=== PATIENT | female | born 1990 | race Caucasian/White ===

== ENCOUNTER 2020-12-20 18:29 | Emergency (ER) | payer MEDICAID ==
[~2020-12-20] VITALS: Ht 170.2 cm; Wt 57.5 kg
[2020-12-20] MEDS ORDERED: risperiDONE 2mg tablet PO ONE (19:30)
[2020-12-20 19:55] LABS: BASOPHILS % (AUTO) 0.7 % (0-1); EOSINOPHILS % (AUTO) 0.3 % (0-6); HEMATOCRIT 37.3 % (35.0-45.0); HEMOGLOBIN 12.4 g/dl (12.0-16.0); LYMPHOCYTES # (AUTO) 1.7 X10'3 (1.1-4.8); LYMPHOCYTES % (AUTO) 26.8 % (21-51); MEAN CORPUSCULAR HEMOGLOBIN 29.8 PG (27.0-31.0); MEAN CORPUSCULAR HGB CONC 33.3 g/dL (33.0-36.5); MEAN CORPUSCULAR VOLUME 89.3 FL (78-98); MEAN PLATELET VOLUME 7.8 FL (7.4-10.4); MONOCYTES # (AUTO) 0.6 X10'3 (0-0.9); MONOCYTES % (AUTO) 9.1 % (2-12); NEUTROPHILS % (AUTO) 63.1 % (42-75); PLATELET COUNT 237 X10'3 (140-440); RED BLOOD COUNT 4.18 X10'6 (4.20-5.60); RED CELL DISTRIBUTION WIDTH 15.2 % (11.5-14.5); WHITE BLOOD COUNT 6.3 X10'3 (4.5-11.0)
[2020-12-20 20:08] LABS: ALANINE AMINOTRANSFERASE 15 U/L (12-78); ALBUMIN 4.6 G/DL (3.4-5.0); ALBUMIN/GLOBULIN RATIO 1.1 (1.1-1.5); ALKALINE PHOSPHATASE 59 IU/L (46-116); ANION GAP 11 (8-16); ASPARTATE AMINO TRANSFERASE 13 U/L (10-37); BLOOD UREA NITROGEN 9 MG/DL (7-18); BUN/CREATININE RATIO 10.3 (6.6-38.0); CALCIUM 9.5 MG/DL (8.5-10.1); CHLORIDE 103 MMOL/L (99-107); CREATININE 0.87 MG/DL (0.40-0.90); GLUCOSE 99 MG/DL (70-104); POTASSIUM 3.8 MMOL/L (3.5-5.1); SODIUM 139 MMOL/L (135-145); TOTAL CARBON DIOXIDE 24.7 MMOL/L (24-32); TOTAL PROTEIN 8.7 G/DL (6.4-8.2); eGFR 78 ML/MIN
[2020-12-20 20:17] LABS: ETHANOL < 0.010 GM/DL (0.0-0.010)
--- NOTE | 2020-12-20 21:06 | NUR ---
To one with the patient to complete intake. The patient is quiet, sad and withdrawn. The patient gives minimal eye contact and her verbal replies are so soft they are difficult to understand at times. The patient stated she was brought in by [employer] after she called saying that she was suicidal with a plan to step in front of a car. She stated she has had previous psychiatric admissions and has been diagnoised with Schizophrenia. The patient is very distracted by internal stimuli and constantly softly mumbling to herself. She stated "Sometimes I see demons and hear angels" She also stated that "The Lord actually helped me call the police" She has been very cooperative.
[2020-12-20 21:14] LABS: CLARITY,URINE CLEAR (Clear); COLOR,URINE YELLOW (Yellow); GLUCOSE, URINE NEGATIVE (Neg); KETONES,URINE >=80 mg/dl (Neg); LEUKOCYTE ESTERASE ,URINE NEGATIVE (Neg); NITRITES, URINE NEGATIVE (Neg); OCCULT BLOOD,URINE SMALL (Neg); PH,URINE 5.5 (4.8-8.0); PROTEIN,URINE NEGATIVE (Neg); UROBILINOGEN,URINE 0.2 E.U/dL (0.2-1.0)
[2020-12-20 21:16] LABS: UA COLLECTION TYPE CLN CATCH MIDSTREAM; URINE HCG NEGATIVE (NEG)
[2020-12-20 21:25] LABS: BACTERIA,URINE 2+ /HPF (Neg); RBC,URINE 0-2 /HPF (0-2); SQUAMOUS EPITHELIAL CELL,UR MANY /LPF (FEW)
[2020-12-20 21:44] LABS: URINE AMPHETAMINE SCREEN NEGATIVE (Neg); URINE BARBITUATE SCREEN NEGATIVE (Neg); URINE BENZODIAZEPINES SCREEN NEGATIVE (Neg); URINE CANNABINOID SCREEN NEGATIVE (Neg); URINE COCAINE SCREEN NEGATIVE (Neg); URINE METHADONE SCREEN NEGATIVE (Neg); URINE OPIATE SCREEN NEGATIVE (Neg); URINE PHENCYCLIDINE SCREEN NEGATIVE (Neg)
--- NOTE | 2020-12-20 21:45 | NUR ---
The patient appears to be sleeping
--- NOTE | 2020-12-20 21:54 | NUR ---
Packet sent to [facility]
--- NOTE | 2020-12-20 22:56 | NUR ---
The patient appears to be sleeping
--- NOTE | 2020-12-21 01:24 | NUR ---
The patient appears to be sleeping
--- NOTE | 2020-12-21 02:19 | NUR ---
The patient appears to be sleeping
--- NOTE | 2020-12-21 03:32 | NUR ---
The patient appears to be sleeping
--- NOTE | 2020-12-21 03:49 | NUR ---
Pt resting in bed, on right side, even and unlabored respirations, no signs of distress at this time. Will continue to monitor.
--- NOTE | 2020-12-21 05:04 | NUR ---
Pt resting in bed, still on right wide, RR 16 even and unlabored. Pt has no signs of distress. Will continue to reassess.
--- NOTE | 2020-12-21 06:21 | NUR ---
rcvd report from ENRIQUE Pablo, pt is sleeping on her left side, eyes closed, regular breathing observed, no needs at this time
--- NOTE | 2020-12-21 07:33 | NUR ---
pt is moving around in bed, eyes closed, regular breathing present, has ambulated to the bathroom
--- NOTE | 2020-12-21 08:26 | NUR ---
spoke to pt, she is very quiet, often leaves the conversation to talk to "Abdoul" then re enters conversation and explains who she is talking to, states she came here from [place], she just wanted a new place, says she is staying in an arbnb, I asked her code for her bike outside which she gave, states she does have thoughts of harming herself with no specific plan
[2020-12-21] MEDS ORDERED: NO HOME MEDS (08:57)
--- NOTE | 2020-12-21 09:27 | NUR ---
Diogenes ACKERMAN, evaluating patient.
--- NOTE | 2020-12-21 09:31 | NUR ---
scmh at bedside eval pt
--- NOTE | 2020-12-21 10:30 | NUR ---
pt is standing at bedside, talking to the wall, calm
[2020-12-21] MEDS ORDERED: OLANZapine 5mg rapidly disint. tablet PO ONE ×2 (10:45→19:50)
--- NOTE | 2020-12-21 10:50 | NUR ---
order obtained for zyprexa, pt accepting of medication, continues to talk to the wall
--- NOTE | 2020-12-21 10:53 | NUR ---
PT STILL RESPONDING TO EXTERNAL STIMULI, TALKING TO THE CORNER, I ASKED HER IS SHE IS STILL HAVING THOUGHTS OF HARMING HERSELF, SHE STATE THAT SHE IS, AND THAT SHE DOESN'T HAVE A DIRECT PLAN, BUT STILL WANTS TO HARM HERSELF, DUE TO THINGS THAT SHE IS UNABLE TO VERBALIZE, BUT LOTS OF "STUFF"
--- NOTE | 2020-12-21 11:33 | NUR ---
spoke to Dr Rucker re: pt dc, she said to have Diogenes, [facility] , come and talk to her, Diogenes is at lunch, let Aiden know, she said she will tell him when he gets back
--- NOTE | 2020-12-21 11:36 | NUR ---
pt is sitting on her bed, eating, talking to herself
--- NOTE | 2020-12-21 12:30 | NUR ---
pt is up to the bathroom, calm
--- NOTE | 2020-12-21 13:35 | NUR ---
PT IS STANDING AT THE END OF HER BED, TALKING TO SOMEONE THAT ISN'T THERE
--- NOTE | 2020-12-21 13:51 | NUR ---
Diogenes with [facility], states that the hold will continue until another worker from [facility] comes and evals pt to ensure safe discharge
--- NOTE | 2020-12-21 15:33 | NUR ---
pt is laying on her right side, eyes closed, regular breathing observed, no needs at this time
--- NOTE | 2020-12-21 16:57 | NUR ---
pt is laying on her left side, eyes closed, asleep, no needs at this time
--- NOTE | 2020-12-21 19:31 | NUR ---
The patient is constantly talking and whispering to herself. She stated that the lord healed her during the night. She reports that she is hearing and seeing angels. She is unable to verbalize a plan for food intermediate or clothing. [facility] contacted and asked what the plan is and there inital plan was to release her. ER staff have requested additional evaluation.
--- NOTE | 2020-12-21 21:00 | NUR ---
THe patient appears to be sleeping at this time. She does not feel she needs medications but did take the zyprexa zydis.
--- NOTE | 2020-12-21 22:54 | NUR ---
The patient was up to use the bathroom. She continues to mumble constantly to herself.
--- NOTE | 2020-12-22 01:39 | NUR ---
The patient appears to be sleeping well
--- NOTE | 2020-12-22 03:16 | NUR ---
The patient up to the bedside commode with two assist.
--- NOTE | 2020-12-22 04:42 | NUR ---
The patient appears to have slept well during the night.
[2020-12-22 06:14] VITALS: BP 131/73
--- NOTE | 2020-12-22 06:38 | NUR ---
rcvd report from ENRIQUE Campbell, pt was just up to the bathroom, no longer on a hold, awaiting [facility]
--- NOTE | 2020-12-22 07:41 | NUR ---
pt is laying on her right side, regular breathing observed, sleeping
--- NOTE | 2020-12-22 08:32 | NUR ---
spoke to pt she states that she is not suicidal today and that she is not hearing voices, i asked if her angels were here and she stated that yes they are here, she has been quietly talking to them
--- NOTE | 2020-12-22 09:15 | NUR ---
pt speaking with JAVI Bacon, [place], obtained phone from her belongings, for Aiden, so pt can get a phone number out of it
--- NOTE | 2020-12-22 09:41 | NUR ---
pt was just talking quietly with pt in the bed next door, she is still responding to external stimuli at times, calm
--- NOTE | 2020-12-22 10:28 | NUR ---
pt is still with MEKA Wolfe, attempting to contact family/friends
--- NOTE | 2020-12-22 11:30 | NUR ---
pt sitting on neighbor's bed coloring, calm, no needs
--- NOTE | 2020-12-22 12:11 | NUR ---
spoke to Dr Raymundo, pt is to be discharged to be taken by cab to [facility] access Services, to set up mental health care. he will be doing discharge
--- NOTE | 2020-12-22 12:29 | NUR ---
called [employer], [facility] wait
== END 2020-12-22 13:55 | disposition home or self-care (01) ==
LOC: ER 18:30
DX: F29 Unspecified psychosis not due to a substance or known physiological condition (principal); Z20.822 Contact with and (suspected) exposure to COVID-19; R45.851 Suicidal ideations; R94.6 Abnormal results of thyroid function studies
CPT/HCPCS: 36415; 80053; 80305; 80320; 81001; 81025; 84443; 85025; 87426; 99285

== ENCOUNTER 2021-03-09 11:09 | Emergency (ER) | payer MEDICAID ==
[~2021-03-09] VITALS: Ht 170.2 cm; Wt 73.3 kg
[~2021-03-09 11:09] MED LIST: NO HOME MEDS
[2021-03-09] MEDS ORDERED: LIDOcaine 1% 30ml preserv. free vial IJ ONE (11:20)
[2021-03-09] MEDS ORDERED: bacitracin 15gm ointment TP ONE (11:20)
[2021-03-09] MEDS ORDERED: acetaminophen 325mg tablet PO ONE (11:30)
[2021-03-09] MEDS ORDERED: CEPH-585 PO (11:54)
[2021-03-09 12:15] VITALS: BP 122/81
== END 2021-03-09 12:16 | disposition home or self-care (01) ==
LOC: ER 11:10
DX: S61.411A Laceration without foreign body of right hand, initial encounter (principal); Z79.899 Other long term (current) drug therapy; W26.8XXA Contact with other sharp object(s), not elsewhere classified, initial encounter; Y93.89 Activity, other specified; Y92.89 Other specified places as the place of occurrence of the external cause; Y99.8 Other external cause status
CPT/HCPCS: 12002; 99283

== ENCOUNTER 2022-01-28 09:33 | Emergency (ER) | payer MEDICAID ==
[~2022-01-28] VITALS: Ht 170.2 cm; Wt 79.1 kg
[2022-01-28 09:38] VITALS: BP 111/73
[2022-01-28 10:29] LABS: CLARITY,URINE TURBID (Clear); COLOR,URINE RED (Yellow); GLUCOSE, URINE NEGATIVE (Neg); KETONES,URINE TRACE mg/dl (Neg); LEUKOCYTE ESTERASE ,URINE NEGATIVE (Neg); NITRITES, URINE NEGATIVE (Neg); OCCULT BLOOD,URINE LARGE (Neg); PROTEIN,URINE 100 mg/dl (Neg); UROBILINOGEN,URINE 0.2 E.U/dL (0.2-1.0)
[2022-01-28 10:30] LABS: UA COLLECTION TYPE CLN CATCH MIDSTREAM
[2022-01-28 10:34] LABS: MUCUS STRANDS FEW /LPF (Neg); RBC,URINE TNTC /HPF (0-2); SQUAMOUS EPITHELIAL CELL,UR MANY /LPF (FEW); WBC,URINE 0-4 /HPF (0-4)
[2022-01-28 10:35] LABS: BACTERIA,URINE 1+ /HPF (Neg)
[2022-01-28 11:05] LABS: BASOPHILS % (AUTO) 0.5 % (0-1); EOSINOPHILS # (AUTO) 0.1 X10'3 (0-0.9); EOSINOPHILS % (AUTO) 0.9 % (0-6); HEMOGLOBIN 12.3 g/dl (12.0-16.0); LYMPHOCYTES # (AUTO) 1.7 X10'3 (1.1-4.8); LYMPHOCYTES % (AUTO) 27.6 % (21-51); MEAN CORPUSCULAR HEMOGLOBIN 28.8 PG (27.0-31.0); MEAN CORPUSCULAR HGB CONC 33.4 g/dL (33.0-36.5); MEAN CORPUSCULAR VOLUME 86.4 FL (78-98); MEAN PLATELET VOLUME 7.9 FL (7.4-10.4); MONOCYTES # (AUTO) 0.4 X10'3 (0-0.9); MONOCYTES % (AUTO) 6.1 % (2-12); NEUTROPHILS # (AUTO) 4.1 X10'3 (1.8-7.7); NEUTROPHILS % (AUTO) 64.9 % (42-75); PLATELET COUNT 332 X10'3 (140-440); RED BLOOD COUNT 4.28 X10'6 (4.20-5.60); RED CELL DISTRIBUTION WIDTH 15.2 % (11.5-14.5); WHITE BLOOD COUNT 6.2 X10'3 (4.5-11.0)
[2022-01-28 11:20] LABS: ALANINE AMINOTRANSFERASE 16 U/L (12-78); ALBUMIN 4.3 G/DL (3.4-5.0); ALBUMIN/GLOBULIN RATIO 1.1 (1.1-1.5); ALKALINE PHOSPHATASE 95 IU/L (46-116); ANION GAP 6 (8-16); ASPARTATE AMINO TRANSFERASE 16 U/L (10-37); BILIRUBIN,TOTAL 1.5 MG/DL (0.1-1.0); BLOOD UREA NITROGEN 9 MG/DL (7-18); CHLORIDE 104 MMOL/L (99-107); CREATININE 0.82 MG/DL (0.40-0.90); ETHANOL < 0.010 GM/DL (0.0-0.010); GLUCOSE 106 MG/DL (70-104); POTASSIUM 3.9 MMOL/L (3.5-5.1); SODIUM 137 MMOL/L (135-145); TOTAL CARBON DIOXIDE 26.9 MMOL/L (24-32); TOTAL PROTEIN 8.1 G/DL (6.4-8.2); eGFR > 90 ML/MIN
[2022-01-28 12:00] LABS: URINE AMPHETAMINE SCREEN NEGATIVE (Neg); URINE BARBITUATE SCREEN NEGATIVE (Neg); URINE BENZODIAZEPINES SCREEN NEGATIVE (Neg); URINE CANNABINOID SCREEN NEGATIVE (Neg); URINE COCAINE SCREEN NEGATIVE (Neg); URINE METHADONE SCREEN NEGATIVE (Neg); URINE OPIATE SCREEN NEGATIVE (Neg); URINE PHENCYCLIDINE SCREEN NEGATIVE (Neg)
[2022-01-28 12:24] LABS: URINE HCG NEGATIVE (NEG)
--- NOTE | 2022-01-28 13:15 | NUR ---
Pt brought over to the unit from the main ER. Pt now waiting to be evaluated by mental health. She is calm, cooperative and polite with staff.
--- NOTE | 2022-01-28 14:46 | NUR ---
Pt evaluated by mental health. She will be discharged and referred to [facility].
== END 2022-01-28 15:10 | disposition home or self-care (01) ==
LOC: ER 09:33
DX: R44.3 Hallucinations, unspecified (principal); Z20.822 Contact with and (suspected) exposure to COVID-19; F41.9 Anxiety disorder, unspecified; R00.0 Tachycardia, unspecified
CPT/HCPCS: 36415; 80053; 80305; 80320; 81001; 81025; 85025; 87635; 99284; C9803

== ENCOUNTER 2022-05-18 14:31 | Emergency (ER) | payer MEDICAID ==
[~2022-05-18] VITALS: Ht 172.7 cm; Wt 72.7 kg
[2022-05-18 16:15] LABS: BASOPHILS # (AUTO) 0.1 X10'3 (0-0.2); BASOPHILS % (AUTO) 0.8 % (0-1); EOSINOPHILS % (AUTO) 0.5 % (0-6); HEMATOCRIT 37.3 % (35.0-45.0); HEMOGLOBIN 12.3 g/dl (12.0-16.0); LYMPHOCYTES # (AUTO) 1.7 X10'3 (1.1-4.8); LYMPHOCYTES % (AUTO) 24.5 % (21-51); MEAN CORPUSCULAR HEMOGLOBIN 28.3 PG (27.0-31.0); MEAN CORPUSCULAR HGB CONC 33.1 g/dL (33.0-36.5); MEAN CORPUSCULAR VOLUME 85.3 FL (78-98); MEAN PLATELET VOLUME 7.3 FL (7.4-10.4); MONOCYTES # (AUTO) 0.6 X10'3 (0-0.9); MONOCYTES % (AUTO) 8.3 % (2-12); NEUTROPHILS # (AUTO) 4.7 X10'3 (1.8-7.7); NEUTROPHILS % (AUTO) 65.9 % (42-75); PLATELET COUNT 359 X10'3 (140-440); RED BLOOD COUNT 4.37 X10'6 (4.20-5.60); RED CELL DISTRIBUTION WIDTH 16.2 % (11.5-14.5); WHITE BLOOD COUNT 7.1 X10'3 (4.5-11.0)
[2022-05-18 16:30] LABS: ALANINE AMINOTRANSFERASE 14 U/L (12-78); ALBUMIN 4.2 G/DL (3.4-5.0); ALBUMIN/GLOBULIN RATIO 1.1 (1.1-1.5); ALKALINE PHOSPHATASE 84 IU/L (46-116); ANION GAP 8 (8-16); ASPARTATE AMINO TRANSFERASE 9 U/L (10-37); BILIRUBIN,TOTAL 1.1 MG/DL (0.1-1.0); BLOOD UREA NITROGEN 5 MG/DL (7-18); CALCIUM 9.4 MG/DL (8.5-10.1); CHLORIDE 101 MMOL/L (99-107); CREATININE 0.83 MG/DL (0.40-0.90); GLUCOSE 106 MG/DL (70-104); POTASSIUM 3.5 MMOL/L (3.5-5.1); SODIUM 137 MMOL/L (135-145); TOTAL CARBON DIOXIDE 27.7 MMOL/L (24-32); eGFR > 90 ML/MIN
--- NOTE | 2022-05-18 20:41 | NUR ---
The patient was moved to bed [facility] after she was brought in by her friend. She reports she has been off her psychiatric medications and is experiencing tactile, auditory hallucinations. She presents as very distracted by internal stimuli and was constantly mumbling to herself. She stated, "I have been feeling burning, burning, burning on my arms" When asked if she was eating at home she reported, "not eating much. drinking, drinking, drinking, food, snacks. I havn't been eating a whole lot" Dr. Carrington at the bedside.
[2022-05-18] MEDS ORDERED: OLANZapine 2.5MG tablet PO ONE (21:00)
--- NOTE | 2022-05-18 21:16 | NUR ---
The patient is talking to herself. She did take zyprexa 10mg po
--- NOTE | 2022-05-18 22:54 | NUR ---
The patient appears to be sleeping
--- NOTE | 2022-05-19 00:28 | NUR ---
PATIENT'S ROOMMATE MELISSA CAIN [phone]
--- NOTE | 2022-05-19 01:09 | NUR ---
The patient appears to be sleeping
--- NOTE | 2022-05-19 02:24 | NUR ---
The patient appears to be sleeping
--- NOTE | 2022-05-19 03:58 | NUR ---
The patient appears to be sleeping
--- NOTE | 2022-05-19 05:53 | NUR ---
The patient appeared to have slept well during the night. She did just give a urine sample and is back in bed at this time
[2022-05-19 05:54] LABS: CLARITY,URINE CLEAR (Clear); COLOR,URINE YELLOW (Yellow); GLUCOSE, URINE NEGATIVE (Neg); KETONES,URINE TRACE mg/dl (Neg); LEUKOCYTE ESTERASE ,URINE NEGATIVE (Neg); NITRITES, URINE NEGATIVE (Neg); OCCULT BLOOD,URINE NEGATIVE (Neg); PROTEIN,URINE NEGATIVE (Neg); UROBILINOGEN,URINE 0.2 E.U/dL (0.2-1.0)
[2022-05-19 05:59] LABS: UA COLLECTION TYPE CLN CATCH MIDSTREAM; URINE AMPHETAMINE SCREEN NEGATIVE (Neg); URINE BARBITUATE SCREEN NEGATIVE (Neg); URINE BENZODIAZEPINES SCREEN NEGATIVE (Neg); URINE CANNABINOID SCREEN NEGATIVE (Neg); URINE COCAINE SCREEN NEGATIVE (Neg); URINE METHADONE SCREEN NEGATIVE (Neg); URINE OPIATE SCREEN NEGATIVE (Neg); URINE PHENCYCLIDINE SCREEN NEGATIVE (Neg)
--- NOTE | 2022-05-19 06:02 | NUR ---
PACKET FAXED TO [facility]
--- NOTE | 2022-05-19 06:55 | NUR ---
Recieved Pt in bed sleeping w/o distress at this time.
--- NOTE | 2022-05-19 09:00 | NUR ---
Pt slept through breakfast and remains sleeping at this time.
--- NOTE | 2022-05-19 11:15 | NUR ---
Pt woke and this RN introduced self. Pt pleasant and smiling and denied any needs and no complaints at this time. Pt resting in bed at this time.
[2022-05-19 12:00] LABS: URINE HCG NEGATIVE (NEG)
--- NOTE | 2022-05-19 13:10 | NUR ---
Pt ate lunch and up to bathroom. Pt has returned to bed.
--- NOTE | 2022-05-19 14:30 | NUR ---
Pt talked to odette henderson on phone. She talked with [facility] clinician and was evaluated for 5150. Millie met with this RN and reported she would be placing Pt on 5150.
--- NOTE | 2022-05-19 16:51 | NUR ---
Nurse to nurse report completed with [facility]. Received call from [facility] office with acceptance for PT. at [facility] @[address]asad. Pt will be picked up at approx. 1930, by [facility] route driver salesperson.
--- NOTE | 2022-05-19 18:01 | NUR ---
Pt in her bed eating dinner, calm and cooperative.
[2022-05-19 18:39] VITALS: BP 112/80
--- NOTE | 2022-05-19 18:43 | NUR ---
Pt is pleasant and smiling. Pt came up to nurses station to tell nurse and tech that "Abdoul loves us very much." Pt stated she did not want to be placed at [facility] because she "has too much stuff to do." RN explained placement process to her and reassured her that it is a good facility. Pt seemed accepting and is aware that she will be getting picked up between [id number].
--- NOTE | 2022-05-19 19:20 | NUR ---
Pt speaking to friend and roommate on phone. Pt is pleasant and in no apparent distress
== END 2022-05-19 20:13 ==
LOC: ER 14:32
DX: R44.2 Other hallucinations (principal); Z20.822 Contact with and (suspected) exposure to COVID-19
CPT/HCPCS: 36415; 80053; 80305; 80320; 81003; 81025; 84443; 85025; 87635; 99285; C9803

== ENCOUNTER 2022-12-27 06:07 | Emergency (ER) | payer MEDICAID ==
[~2022-12-27] VITALS: Ht 170.2 cm; Wt 77.3 kg
[2022-12-27 07:53] LABS: CLARITY,URINE TURBID (Clear); COLOR,URINE YELLOW (Yellow); GLUCOSE, URINE NEGATIVE (Neg); KETONES,URINE NEGATIVE (Neg); LEUKOCYTE ESTERASE ,URINE LARGE (Neg); NITRITES, URINE POSITIVE (Neg); OCCULT BLOOD,URINE NEGATIVE (Neg); PROTEIN,URINE NEGATIVE (Neg); UROBILINOGEN,URINE 0.2 E.U/dL (0.2-1.0)
[2022-12-27 08:01] LABS: UA COLLECTION TYPE CLN CATCH MIDSTREAM
[2022-12-27 08:04] LABS: URINE AMPHETAMINE SCREEN NEGATIVE (Neg); URINE BARBITUATE SCREEN NEGATIVE (Neg); URINE BENZODIAZEPINES SCREEN NEGATIVE (Neg); URINE CANNABINOID SCREEN NEGATIVE (Neg); URINE COCAINE SCREEN NEGATIVE (Neg); URINE METHADONE SCREEN NEGATIVE (Neg); URINE OPIATE SCREEN NEGATIVE (Neg); URINE PHENCYCLIDINE SCREEN NEGATIVE (Neg)
[2022-12-27 08:07] LABS: AMORPHOUS PHOSPHATES 3+; BACTERIA,URINE 2+ /HPF (Neg)
[2022-12-27 08:08] LABS: RBC,URINE 0-2 /HPF (0-2)
[2022-12-27 08:09] LABS: MUCUS STRANDS MODERATE /LPF (Neg); TRANSITIONAL EPI CELLS,URINE MODERATE /HPF
[2022-12-27 08:11] LABS: SQUAMOUS EPITHELIAL CELL,UR MODERATE /LPF (FEW)
[2022-12-27] MEDS ORDERED: OLAN5TAB3 PO (09:00)
[2022-12-27 09:22] VITALS: BP 120/66
== END 2022-12-27 09:25 | disposition home or self-care (01) ==
LOC: ER 06:08
DX: O99.341 Other mental disorders complicating pregnancy, first trimester (principal); F99 Mental disorder, not otherwise specified; Z3A.13 13 weeks gestation of pregnancy
CPT/HCPCS: 80305; 81001; 99283

== ENCOUNTER 2023-05-02 02:47 | Emergency (ER) | payer MEDICAID ==
[~2023-05-02] VITALS: Ht 170.2 cm; Wt 93.2 kg
[~2023-05-02 02:47] MED LIST changes: +OLAN5TAB3 PO
--- NOTE | 2023-05-02 04:28 | NUR ---
she has eaten a sandwich and jello and drinking water. Urine cup given and she is aware a sample is needed.
[2023-05-02 05:45] LABS: EOSINOPHILS # (AUTO) 0.1 X10'3 (0-0.9); LYMPHOCYTES # (AUTO) 1.8 X10'3 (1.1-4.8); MONOCYTES # (AUTO) 0.7 X10'3 (0-0.9)
[2023-05-02 05:46] LABS: CLARITY,URINE SLIGHTLY CLOUDY (Clear); COLOR,URINE YELLOW (Yellow); GLUCOSE, URINE NEGATIVE (Neg); KETONES,URINE NEGATIVE (Neg); LEUKOCYTE ESTERASE ,URINE LARGE (Neg); NITRITES, URINE NEGATIVE (Neg); OCCULT BLOOD,URINE NEGATIVE (Neg); PH,URINE 6.5 (4.8-8.0); PROTEIN,URINE NEGATIVE (Neg); UROBILINOGEN,URINE 0.2 E.U/dL (0.2-1.0)
[2023-05-02 05:47] LABS: BASOPHILS % (AUTO) 0.4 % (0-1); EOSINOPHILS % (AUTO) 1.2 % (0-6); HEMOGLOBIN 10.9 g/dl (12.0-16.0); LYMPHOCYTES % (AUTO) 18.8 % (21-51); MEAN CORPUSCULAR HEMOGLOBIN 28.6 PG (27.0-31.0); MEAN CORPUSCULAR VOLUME 86.6 FL (78-98); MEAN PLATELET VOLUME 7.9 FL (7.4-10.4); MONOCYTES % (AUTO) 7.2 % (2-12); NEUTROPHILS # (AUTO) 7.1 X10'3 (1.8-7.7); NEUTROPHILS % (AUTO) 72.4 % (42-75); PLATELET COUNT 344 X10'3 (140-440); RED BLOOD COUNT 3.81 X10'6 (4.20-5.60); RED CELL DISTRIBUTION WIDTH 16.1 % (11.5-14.5); WHITE BLOOD COUNT 9.8 X10'3 (4.5-11.0)
[2023-05-02 05:47] LABS: UA COLLECTION TYPE CLN CATCH MIDSTREAM
[2023-05-02 05:52] LABS: BACTERIA,URINE 4+ /HPF (Neg); MUCUS STRANDS NONE SEEN /LPF (Neg); RBC,URINE NONE SEEN /HPF (0-2); SQUAMOUS EPITHELIAL CELL,UR MANY /LPF (FEW)
[2023-05-02 05:54] LABS: URINE AMPHETAMINE SCREEN NEGATIVE (Neg); URINE BARBITUATE SCREEN NEGATIVE (Neg); URINE BENZODIAZEPINES SCREEN NEGATIVE (Neg); URINE CANNABINOID SCREEN NEGATIVE (Neg); URINE COCAINE SCREEN NEGATIVE (Neg); URINE METHADONE SCREEN NEGATIVE (Neg); URINE OPIATE SCREEN NEGATIVE (Neg); URINE PHENCYCLIDINE SCREEN NEGATIVE (Neg)
[2023-05-02 06:04] LABS: ALANINE AMINOTRANSFERASE 13 U/L (12-78); ALBUMIN 2.9 G/DL (3.4-5.0); ALBUMIN/GLOBULIN RATIO 0.7 (1.1-1.5); ALKALINE PHOSPHATASE 136 IU/L (46-116); ANION GAP 8 (8-16); ASPARTATE AMINO TRANSFERASE 14 U/L (10-37); BILIRUBIN,TOTAL 0.2 MG/DL (0.1-1.0); BLOOD UREA NITROGEN 6 MG/DL (7-18); BUN/CREATININE RATIO 8.5 (10.0-20.0); CALCIUM 9.1 MG/DL (8.5-10.1); CHLORIDE 103 MMOL/L (99-107); CREATININE 0.71 MG/DL (0.40-0.90); GLUCOSE 78 MG/DL (70-104); SODIUM 136 MMOL/L (135-145); TOTAL CARBON DIOXIDE 25.5 MMOL/L (24-32); eGFR > 90 ML/MIN
[2023-05-02 06:13] LABS: ETHANOL < 0.010 GM/DL (0.0-0.010)
[2023-05-02 06:20] VITALS: BP 121/77
--- NOTE | 2023-05-02 06:25 | NUR ---
patient laying in bed resting quietly, vital signs taking, compliant with care. no distress noted.
[2023-05-02] MEDS ORDERED: PREN1TAB23 PO (07:46)
--- NOTE | 2023-05-02 07:54 | NUR ---
patient compliant, laying in bed resting quietly, no distress noted.
--- NOTE | 2023-05-02 07:54 | NUR ---
BELONGING: belongings are stored in OF room 27 locker number 25. and medications are in pharmacy.
[2023-05-02] MEDS ORDERED: OLAN5TAB75 PO (08:39)
--- NOTE | 2023-05-02 08:55 | NUR ---
pt standing in doorway, appears to be responding to internal stimuli. she is carrying on a conversation and no one is there. calm and quiet guera noted
--- NOTE | 2023-05-02 09:05 | NUR ---
PT EATING BREAKFAST
--- NOTE | 2023-05-02 09:42 | NUR ---
no distress noted at this time. patient laying down in bed quietly.
[2023-05-03] MEDS ORDERED: multivitamins, therapeutics tablet PO SCH (08:00)
[2023-05-03] MEDS ORDERED: OLANZAPINE 5 MG TABLET PO SCH (08:00)
== END 2023-05-02 11:46 | disposition home or self-care (01) ==
LOC: ER 02:48
DX: O99.343 Other mental disorders complicating pregnancy, third trimester (principal); Z20.822 Contact with and (suspected) exposure to COVID-19; F32.A Depression, unspecified; Z3A.24 24 weeks gestation of pregnancy
CPT/HCPCS: 36415; 80053; 80305; 80320; 81001; 84443; 85025; 87811; 99285